=== PATIENT | female | born 1985 | race Caucasian/White ===

== ENCOUNTER 2023-09-23 13:27 | Outpatient (AMB) | payer OTHER, SELFPAY ==
[2023-09-23 13:34] VITALS: BP 114/62; PULSE 75; O2SAT 99; BMI 21.1
--- NOTE | 2023-09-23 13:34 | A.OFFVIS_ITS ---
Intake Vital Signs 09/23/23 13:34 Height 5 ft 7 in Weight 135 lb BMI 21.1 BP 114/62 Blood Pressure Location Rt brachial Position Sitting Pulse 75 Pulse Oximetry (%) 99 Oxygen Delivery Method Room Air Intake Visit Reasons: Shortness of breath Livestock Brands Inspector Required: No Structured Cabling Technician: Structured Cabling Technician offered & declined Accompanied by: Self / Same As Patient Allergies No Known Allergies Allergy (Verified 09/23/23 13:36) HPI Shortness of breath HPI Details Dacia is a pleasant 38 year old female, never smoker, with underlying h/o symtomatic PVCs and seizure disorder. She was referred for pulmonary evaluation for ongoing left sided chest discomfort which radiates towards her neck. She reports pain is variable, squeezing in nature, lasting seconds and occurs once per week, for the past 4-5 years. She also notes dizziness when this discomfort occurs. She denies any wheezing or dyspnea. She does report intermittent white sputum production, however denies cough. She has reportedly been evaluated by two parts fabricator in [place], with unremarkable stress test and echocardiogram. She underwent recent cardiac evaluation with holter and noted these symptoms occurred, however mild in nature. She has a follow up on 10/12 to review results. Will obtain records from [facility]. She also reports a sensation of food stuck in her throat on the left and is undergoing an endoscopy in the near future. She denies any symptoms of heartburn or acid reflux. She reports sister, smoker with COPD otherwise no pertinent family history. She does note two sisters with breast cancer and has mammograms q 6 months. [facility] Social History (Updated 09/23/23 @ 13:36 by Regine Denise LPN) Patient Tobacco Use Status: Never used Tobacco Review of Systems Const Denies chills, Denies excessive sweating, Denies fever(s), Denies headache(s) and Denies night sweats Eyes Denies dry eyes, Denies irritation and Denies itchy eyes ENT Reports Normal hearing present, Denies headache(s), Denies nasal congestion, Denies nasal discharge, Denies post nasal drip and Denies sore throat Card Denies claudication, Denies leg edema, Denies dyspnea, Denies dyspnea on exertion, Denies orthopnea and Denies paroxysmal nocturnal dyspnea Resp Denies chest congestion, Denies cough, Denies excessive phlegm production, Denies pain on inspiration, Denies pain with cough, Denies dyspnea, Denies dyspnea on exertion, Denies stridor and Denies wheezing Musc Denies myalgias Neuro Reports Normal hearing present and Denies headache(s) Endo Denies excessive sweating Edison/Lymph Denies lymphadenopathy Aller/Immun Denies itchy eyes, Denies seasonal rhinorrhea and Denies wheezing Physical Exam Vital Signs: Last Vital Signs Pulse 75 09/23/23 13:34 BP 114/62 09/23/23 13:34 Pulse Ox 99 09/23/23 13:34 Oxygen Delivery Method Room Air 09/23/23 13:34 BMI result Body Mass Index 21.1 Const General: cooperative, healthy appearing, comfortable, no acute distress, well developed and alert Orientation/consciousness: patient oriented x3 Limitations: no limitations HEENT Head: Yes normal to inspection, Yes normocephalic and Yes atraumatic Ears: hearing grossly normal bilaterally and external ears normal Eyes General: appearance normal, both eyes and all related structures Eyelids: Yes eyelids normal Sclerae: sclerae normal EOM: EOMs intact bilaterally Neck Neck: Yes normal visual inspection and Yes no lymphadenopathy Lymphatic: no lymphadenopathy noted Chest Chest palpation & inspection: normal inspection of the chest Resp Effort & Inspection: normal respiratory effort, able to speak in complete sentences, no audible wheezes, no cough, no stridor, not tachypneic, no tripod positioning and no use of accessory muscles Auscultation: clear to auscultation bilaterally Cardio Jugular venous distension: no JVD Rate: regular rate Rhythm: regular rhythm Skin Other: warm, dry General skin exam: no rashes or lesions noted Neuro General: patient oriented x3 Cranial nerves: Yes Normal hearing present Cognition (Neuro): normal cognition Gait exam (Neuro): Normal gait present Extrem General: Yes normal to inspection, Yes capillary refill normal, Yes no clubbing, cyanosis or edema and Yes no pedal edema Psych Appearance: grossly normal and well kempt Speech and movement: Normal speech and movement present and Clear speech present Affect: normal affect Attitude: cooperative Thought process: Normal thought process present Thought content: Normal thought content present Insight: Good insight present (Psych) Judgement: Good judgement present (Psych) Assessment & Plan Assessment & Plan (1) Chest pain: Code(s): R07.9 - Chest pain, unspecified Plan Canan's symptoms are unlikely related to pulmonary etiologies, however will send for CXR with possible further imaging to evaluate. She is requesting a MRI, if further imaging is required, as she requires biannual mammograms due to high familial risk of breast cancer and would like to avoid additional radiation if possible. All questions were answered and patient is in agreement of plan. Will follow up in 4 weeks to review CXR and cardiac input. Will have her sign release to obtain cardiology records. She is aware to seek emergent care if symptoms worsen. Orders: Orders XR chest 2V 09/23/23 R07.9 - Chest pain, unspecified Coding Level of Care Code New Pt Level 3 (51856) Diagnoses Chest pain R07.9
== END 2023-09-23 14:08 | disposition home or self-care (01) ==
PROVIDERS: PCP Family Medicine; Referring Provider Family Medicine; Visit Provider Nurse Practitioner Family
DX: R07.9 Chest pain, unspecified (principal)
CPT/HCPCS: 99203

== ENCOUNTER → 2023-09-23 13:27 | Outpatient (BNVA) | payer OTHER, SELFPAY | PROVIDERS: Referring Provider Family Medicine; Visit Provider Nurse Practitioner Family ==

== ENCOUNTER 2023-09-29 14:59 | Outpatient (REF) | payer OTHER, SELFPAY ==
--- NOTE | ~2023-09-29 | XR_ITS ---
EXAMINATION: XR CHEST CLINICAL INFORMATION: Chest pain COMPARISON: None available. TECHNIQUE: 2 views of the chest were obtained. FINDINGS: vascularity. LUNGS: Lungs are clear. No pneumothorax is seen. BONES: Bony skeleton is intact. XR/XR chest 2V IMPRESSION: No radiographic evidence of acute cardiopulmonary disease.
== END 2023-09-29 15:00 | disposition home or self-care (01) ==
LOC: HO.XRAY 14:59
PROVIDERS: Visit Provider Nurse Practitioner Family
DX: R07.9 Chest pain, unspecified (principal)
CPT/HCPCS: 71046

== ENCOUNTER 2023-10-21 14:06 | Outpatient (AMB) | payer OTHER, SELFPAY ==
--- NOTE | 2023-10-21 13:10 | A.OFFVIS_ITS ---
Intake Vital Signs 10/21/23 14:08 Height 5 ft 7 in Weight 137 lb BMI 21.5 BP 116/60 Pulse 70 Pulse Source Pulse Oximeter Pulse Oximetry (%) 99 Oxygen Delivery Method Room Air Intake Visit Reasons: sob: 4 week f/u Accounts Receivable Associate Required: No Construction Technology Instructor: Construction Technology Instructor offered & declined Accompanied by: Self / Same As Patient Allergies No Known Allergies Allergy (Verified 10/21/23 14:12) HPI sob: 4 week f/u HPI Details Dacia is a pleasant 38 year old female, never smoker, with underlying h/o symptomatic PVCs and seizure disorder. She was referred for pulmonary evaluation for ongoing left sided chest discomfort which radiates towards her neck. She reports pain is variable, squeezing in nature, lasting seconds and occurs approximately once per week, for the past 4-5 years. She also notes dizziness and increase in heart rate at rest (120-130) when this discomfort occurs. She denies cough, or dyspnea. Today reports intermittent wheezing. She exercises frequently, without occurrences of discomfort or dyspnea. However when the pain occurs she notes her heart rate is elevated 120-130s at rest. She recently had a 30 day holter which reportedly was unremarkable, despite having these episodes while being monitored. Today she presents review CXR and cardiology input. [facility] Social History (Updated 10/21/23 @ 14:13 by Regine Denise LPN) Patient Tobacco Use Status: Never used Tobacco Smoked in Last 30 Days: No Review of Systems Const Denies chills, Denies excessive sweating, Denies fever(s), Denies headache(s) and Denies night sweats Eyes Denies dry eyes, Denies irritation and Denies itchy eyes ENT Reports Normal hearing present, Denies headache(s), Denies nasal congestion, Denies nasal discharge, Denies post nasal drip and Denies sore throat Card Denies claudication, Denies leg edema, Denies dyspnea, Denies dyspnea on exertion, Denies orthopnea and Denies paroxysmal nocturnal dyspnea Resp Denies chest congestion, Denies cough, Denies excessive phlegm production, Denies pain on inspiration, Denies pain with cough, Denies dyspnea, Denies dyspnea on exertion, Denies stridor and Denies wheezing Musc Denies myalgias Neuro Reports Normal hearing present and Denies headache(s) Endo Denies excessive sweating Edison/Lymph Denies lymphadenopathy Aller/Immun Denies itchy eyes, Denies seasonal rhinorrhea and Denies wheezing Physical Exam Vital Signs: Last Vital Signs Pulse 70 10/21/23 14:08 BP 116/60 10/21/23 14:08 Pulse Ox 99 10/21/23 14:08 Oxygen Delivery Method Room Air 10/21/23 14:08 BMI result Body Mass Index 21.5 Const General: cooperative, healthy appearing, comfortable, no acute distress, well developed and alert Orientation/consciousness: patient oriented x3 Limitations: no limitations HEENT Head: Yes normal to inspection, Yes normocephalic and Yes atraumatic Ears: hearing grossly normal bilaterally and external ears normal Eyes General: appearance normal, both eyes and all related structures Eyelids: Yes eyelids normal Sclerae: sclerae normal EOM: EOMs intact bilaterally Neck Neck: Yes normal visual inspection and Yes no lymphadenopathy Lymphatic: no lymphadenopathy noted Chest Chest palpation & inspection: normal inspection of the chest Resp Effort & Inspection: normal respiratory effort, able to speak in complete sentences, no audible wheezes, no cough, no stridor, not tachypneic, no tripod positioning and no use of accessory muscles Auscultation: clear to auscultation bilaterally Cardio Jugular venous distension: no JVD Rate: regular rate Rhythm: regular rhythm Skin Other: warm, dry General skin exam: no rashes or lesions noted Neuro General: patient oriented x3 Cranial nerves: Yes Normal hearing present Cognition (Neuro): normal cognition Gait exam (Neuro): Normal gait present Extrem General: Yes normal to inspection, Yes capillary refill normal, Yes no clubbing, cyanosis or edema and Yes no pedal edema Psych Appearance: grossly normal and well kempt Speech and movement: Normal speech and movement present and Clear speech present Affect: normal affect Attitude: cooperative Thought process: Normal thought process present Thought content: Normal thought content present Insight: Good insight present (Psych) Judgement: Good judgement present (Psych) Results Reviewed Results Reviewed: [address] [address] XRay Report Signed Patient: Dacia Amador MR#: [id number] : 1985 Acct:[id number] Age/Sex: 38 / F ADM Date: 09/29/23 Loc: [facility] Attending Dr: Suly Spears [employer]ESSER Ordering Physician: Suly Spears NP Date of Service: 09/29/23 Procedure(s): XR chest 2V Accession Number(s): [id number] cc: Suly Spears NP~ EXAMINATION: XR CHEST CLINICAL INFORMATION: Chest pain COMPARISON: None available. TECHNIQUE: 2 views of the chest were obtained. FINDINGS: vascularity. LUNGS: Lungs are clear. No pneumothorax is seen. BONES: Bony skeleton is intact. XR/XR chest 2V IMPRESSION: No radiographic evidence of acute cardiopulmonary disease. Dictated By: Jj Wilder Signed By: <Electronically signed by Jj Wilder in [place]> 10/03/23 1446 Assessment & Plan Assessment & Plan (1) Chest pain: Code(s): R07.9 - Chest pain, unspecified (2) Reactive airway disease with wheezing: Code(s): J45.909 - Unspecified asthma, uncomplicated Plan Will send for PFT to assess for any reactive airway disease given her intermittent wheezing. Reviewed CXR which was unremarkable. Discussed further imaging to rule out any pulmonary etiology contributing to chest discomfort but patient would like to hold off at this time. It is more likely it is cardiac in nature given increased heart rate and dizziness with chest discomfort, however holter reportedly normal. Will reach out to obtain records from cardiology. Patient is also requesting a second opinion and plans to have another cardiac evaluation through [facility]. If symptoms persist, may consider CPET. Patient also underwent GI evaluation which reportedly revealed a small hiatal hernia, otherwise unremarkable. Will follow up after PFT to review results. All questions were answered and patient is in agreement of plan. Orders: Orders PFT pulmonary function test Today J45.909 - Unspecified asthma, uncomplicated Coding Level of Care Code Est Pt Level 4 (31731) Diagnoses Chest pain R07.9 Reactive airway disease with wheezing J45.909
[2023-10-21 14:08] VITALS: BP 116/60; PULSE 70; O2SAT 99; BMI 21.5
== END 2023-10-21 14:37 | disposition home or self-care (01) ==
PROVIDERS: Visit Provider Nurse Practitioner Family
DX: R07.9 Chest pain, unspecified (principal); J45.909 Unspecified asthma, uncomplicated
CPT/HCPCS: 99214

== ENCOUNTER → 2023-10-21 14:06 | Outpatient (BNVA) | payer OTHER, SELFPAY | PROVIDERS: Visit Provider Nurse Practitioner Family ==

== ENCOUNTER 2023-12-29 13:21 | Outpatient (REF) | payer OTHER, SELFPAY | END 2023-12-29 13:22 | disposition home or self-care (01) | LOC: HO.CT 13:21 | PROVIDERS: Visit Provider Nurse Practitioner Family | DX: Z13.89 Encounter for screening for other disorder (principal) ==

== ENCOUNTER 2023-12-29 14:16 | Emergency (ER) | payer OTHER, SELFPAY ==
--- NOTE | 2023-12-29 14:19 | ED.GENADULT ---
HPI - General Adult General Chief complaint: General Medical Stated complaint: not feeling well after cat scan Related Data Allergies Allergy/AdvReac Type Severity Reaction Status Date / Time bee pollen [bee stings] Allergy Swelling Verified 12/29/23 14:21 COUNT INCLUDES THE [facility] Social History Social History (Updated 10/21/23 @ 14:13 by Regine Denise LPN) Patient Tobacco Use Status: Never used Tobacco Physical Exam ED Vital Signs: Vital Signs - 24 hr 12/29/23 14:22 Temperature 97.8 F Pulse Rate 71 Respiratory Rate 16 Blood Pressure 119/73 Pulse Oximetry 98 Oxygen Delivery Method Room Air BMI result Body Mass Index 22.7 Course Course Course Narrative: This is a rapid medical exam: Additional HPI, ROS, PE not included below will be deferred to primary provider. Patient is a 38-year-old female presenting to the ED from outpatient CT after having a reaction to the CT contrast. Patient states that when the contrast was injected she developed tingling to her face and pressure around her eyes. Also felt a warm sensation in her chest. Symptoms have since resolved. Denies any rash or hives. Denies any chest pain or dyspnea. States she gets regular CT scans and MRIs and has never had a reaction before. Denies shortness of breath, swelling to lips or tongue. No uvula edema. States occurred 45 minutes ago. Plan: EKG Discharge Plan Discharge Clinical Impression: Adverse reaction to contrast media Patient Disposition: Left W/O Completing Treatment
[2023-12-29 14:22] VITALS: BP 119/73; PULSE 71; RESP 16; TEMP 36.6; O2SAT 98; BMI 22.7
== END 2023-12-29 16:34 | disposition left against medical advice (07) ==
PROVIDERS: Emergency Provider Emergency Medicine
DX: R20.2 Paresthesia of skin (principal); T50.8X5A Adverse effect of diagnostic agents, initial encounter; X58.XXXA Exposure to other specified factors, initial encounter
CPT/HCPCS: 71275; 99281; 99283

== ENCOUNTER 2024-01-06 10:55 | Outpatient (REF) | payer OTHER, SELFPAY ==
[2023-12-29] MEDS: iohexoL 350 MG/ML 75 ML INFUS..BTL 65 ML IV (14:04)
--- NOTE | ~2024-01-06 | CT_ITS ---
EXAMINATION: CT ANGIOGRAM OF THE CHEST WITH AND WITHOUT CONTRAST (CT PULMONARY ANGIOGRAM FOR PE) CLINICAL INFORMATION: Reason for Exam R07.9 - Chest pain, unspecified COMPARISON: None available. TECHNIQUE: Prior to contrast administration, noncontrast localization images were obtained. Subsequently, multidetector volumetric imaging was performed from the thoracic inlet to below the diaphragms following the administration of 65 mL Omnipaque 350 intravenous contrast. No contrast reaction reported Sagittal, coronal, and MIP oblique sagittal reformatted images were obtained on the CT workstation, uploaded to PACS, and reviewed. This CT examination was performed using dose optimization techniques as appropriate, variously including the following: *Automated exposure control *Adjustment of mA and/or kV according to patient size (this includes techniques or standardized protocols for targeted exams where dose is matched to indication/reason for exam; i.e. extremities or head) *Use of iterative reconstruction technique Total exam dose-length product 88 mGy-cm FINDINGS: QUALITY OF STUDY/CONTRAST BOLUS: Satisfactory. PULMONARY ARTERIES: No pulmonary emboli. THORACIC AORTA: No aneurysm. LUN.8 x 1.2 cm groundglass nodule in the right lower lobe on image 28 of series 6. PLEURA: Small bilateral pleural effusions. MEDIASTINUM: Normal heart size. Trace pericardial effusion. No hilar or mediastinal lymphadenopathy. No evidence of septal bowing or right heart strain. CORONARY ARTERY CALCIFICATION: None visualized on this study. CHEST WALL/AXILLA: No axillary or internal mammary lymphadenopathy. OSSEOUS STRUCTURES: No destructive bone lesions. UPPER ABDOMEN: No adrenal mass. No reflux of contrast into the hepatic veins to suggest elevated right heart pressures. CT/CT angio chest PE protocol IMPRESSION: No evidence of pulmonary embolus. 1.8 x 1.2 cm groundglass nodule in the right lower lobe. Follow-up chest CT in 6 months is advised. Trace bilateral pleural effusions. VTE: negative
[2024-01-06 11:42] VITALS: PULSE 60; RESP 14; O2SAT 100
--- NOTE | 2024-01-06 13:36 | PFT_ITS ---
Indication: Dyspnea Spirometry [FEV1 to FVC 79%; FEV1 1.13 L; FVC 3.94 L. No significant response to bronchodilators. Maximum voluntary ventilation 118% predicted] Lung Volumes [Total lung capacity 96% predicted] Diffusion Capacity [DLCO 115% predicted] Comparisons [None] Interpretation [No obstructive nor restrictive ventilatory defects identified. No significant response to bronchodilators noted. No maximum voluntary ventilation. Normal lung volumes and diffusing capacity. Flow volume loop consistent with normal lung mechanics. MTDD
== END 2024-01-06 10:56 | disposition home or self-care (01) ==
LOC: HO.RESP 10:55
PROVIDERS: PCP Family Medicine; Visit Provider Nurse Practitioner Family
DX: R07.9 Chest pain, unspecified (principal); J45.909 Unspecified asthma, uncomplicated
CPT/HCPCS: 94010; 94640; 94727; 94729; Q9967

== ENCOUNTER → 2024-01-06 13:36 | Outpatient (BNV) | payer OTHER, SELFPAY | PROVIDERS: PCP Family Medicine; Visit Provider Hospitalist | DX: J45.909 Unspecified asthma, uncomplicated (principal) | CPT/HCPCS: 94060; 94727; 94729 ==

== ENCOUNTER 2024-01-11 13:04 | Outpatient (AMB) | payer OTHER, SELFPAY ==
--- NOTE | 2024-01-11 13:05 | A.OFFVIS_ITS ---
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 She was referred for pulmonary evaluation for ongoing left sided chest discomfort which radiates towards her neck. She reports pain is variable, squeezing in nature, lasting seconds and occurs approximately once per week, for the past 4-5 years. She also notes dizziness and increase in heart rate at rest (120-130) when this discomfort occurs. She denies cough, or dyspnea. Cardiology work up unremarkable. At the last visit, she was sent for ddimer for chest pain which was mildly elevated therefore sent for CTA, which was negative. However CTA did reveal a well circ umscribed ground glass appearing opacity, which we discussed. Her case was further discussed at our multidisciplinary conference which we had previously reviewed recommendations including thoracic surgery referral, PET or CT chest in three months. Today she presents to further discuss and review PFT results. Today she denies any respiratory symptoms. [facility]LY [facility], [facility] Social History Patient Tobacco Use Status: Never used Tobacco Review of Systems Const Denies chills, Denies excessive sweating, Denies fever(s), Denies headache(s) and Denies night sweats Eyes Denies dry eyes, Denies irritation and Denies itchy eyes ENT Reports Normal hearing present, Denies headache(s), Denies nasal congestion, Denies nasal discharge, Denies post nasal drip and Denies sore throat Card Denies claudication, Denies leg edema, Denies dyspnea, Denies dyspnea on exertion, Denies orthopnea and Denies paroxysmal nocturnal dyspnea Resp Denies chest congestion, Denies cough, Denies excessive phlegm production, Denies pain on inspiration, Denies pain with cough, Denies dyspnea, Denies dyspnea on exertion, Denies stridor and Denies wheezing Musc Denies myalgias Neuro Reports Normal hearing present and Denies headache(s) Endo Denies excessive sweating Edison/Lymph Denies lymphadenopathy Aller/Immun Denies itchy eyes, Denies seasonal rhinorrhea and Denies wheezing Physical Exam Vital Signs: Last Vital Signs Pulse 62 01/11/24 13:08 Pulse Ox 99 01/11/24 13:08 Oxygen Delivery Method Room Air 01/11/24 13:08 BMI result Body Mass Index 21.6 Const General: cooperative, healthy appearing, comfortable, no acute distress, well developed and alert Orientation/consciousness: patient oriented x3 Limitations: no limitations HEENT Head: Yes normal to inspection, Yes normocephalic and Yes atraumatic Ears: hearing grossly normal bilaterally and external ears normal Eyes General: appearance normal, both eyes and all related structures Eyelids: Yes eyelids normal Sclerae: sclerae normal EOM: EOMs intact bilaterally Neck Neck: Yes normal visual inspection and Yes no lymphadenopathy Lymphatic: no lymphadenopathy noted Chest Chest palpation & inspection: normal inspection of the chest Resp Effort & Inspection: normal respiratory effort, able to speak in complete sentences, no audible wheezes, no cough, no stridor, not tachypneic, no tripod positioning and no use of accessory muscles Auscultation: clear to auscultation bilaterally Cardio Jugular venous distension: no JVD Rate: regular rate Rhythm: regular rhythm Skin Other: warm, dry General skin exam: no rashes or lesions noted Neuro General: patient oriented x3 Cranial nerves: Yes Normal hearing present Cognition (Neuro): normal cognition Gait exam (Neuro): Normal gait present Extrem General: Yes normal to inspection, Yes capillary refill normal, Yes no clubbing, cyanosis or edema and Yes no pedal edema Psych Appearance: grossly normal and well kempt Speech and movement: Normal speech and movement present and Clear speech present Affect: normal affect Attitude: cooperative Thought process: Normal thought process present Thought content: Normal thought content present Insight: Good insight present (Psych) Judgement: Good judgement present (Psych) Results Reviewed Results Reviewed: [address] [address] [address] Scan Report Signed Patient: Dacia Amador MR#: [id number] : 1985 Acct:[id number] Age/Sex: 38 / F ADM Date: 11/15/23 Loc: HO.RESP Attending Dr: Suly Spears NP Ordering Physician: Suly Spears NP Date of Service: 12/29/23 Procedure(s): CT angio chest PE protocol Accession Number(s): [id number] cc: Suly Spears NP~ EXAMINATION: CT ANGIOGRAM OF THE CHEST WITH AND WITHOUT CONTRAST (CT PULMONARY ANGIOGRAM FOR PE) CLINICAL INFORMATION: Reason for Exam R07.9 - Chest pain, unspecified COMPARISON: None available. TECHNIQUE: Prior to contrast administration, noncontrast localization images were obtained. Subsequently, multidetector volumetric imaging was performed from the thoracic inlet to below the diaphragms following the administration of 65 mL Omnipaque 350 intravenous contrast. No contrast reaction reported Sagittal, coronal, and MIP oblique sagittal reformatted images were obtained on the CT workstation, uploaded to PACS, and reviewed. This CT examination was performed using dose optimization techniques as appropriate, variously including the following: *Automated exposure control *Adjustment of mA and/or kV according to patient size (this includes techniques or standardized protocols for targeted exams where dose is matched to indication/reason for exam; i.e. extremities or head) *Use of iterative reconstruction technique Total exam dose-length product 88 mGy-cm FINDINGS: QUALITY OF STUDY/CONTRAST BOLUS: Satisfactory. PULMONARY ARTERIES: No pulmonary emboli. THORACIC AORTA: No aneurysm. LUN.8 x 1.2 cm groundglass nodule in the right lower lobe on image 28 of series 6. PLEURA: Small bilateral pleural effusions. MEDIASTINUM: Normal heart size. Trace pericardial effusion. No hilar or mediastinal lymphadenopathy. No evidence of septal bowing or right heart strain. CORONARY ARTERY CALCIFICATION: None visualized on this study. CHEST WALL/AXILLA: No axillary or internal mammary lymphadenopathy. OSSEOUS STRUCTURES: No destructive bone lesions. UPPER ABDOMEN: No adrenal mass. No reflux of contrast into the hepatic veins to suggest elevated right heart pressures. CT/CT angio chest PE protocol IMPRESSION: No evidence of pulmonary embolus. 1.8 x 1.2 cm groundglass nodule in the right lower lobe. Follow-up chest CT in 6 months is advised. Trace bilateral pleural effusions. VTE: negative Dictated By: Hallie Clemente MD Signed By: <Electronically signed by Hallie Clemente MD in OV> 12/29/23 1518 DD/ 1404 TD/TT: Family Nurse: Assessment & Plan Assessment & Plan (1) Ground glass opacity present on imaging of lung: Code(s): R91.8 - Other nonspecific abnormal finding of lung field (2) Chest pain: Code(s): R07.9 - Chest pain, unspecified Plan Patient is quite concerned with findings so had long discussion reviewing CTA in detail and recommendations. At this time, she would like to move forward with a thoracic surgery referral and is requesting a referral to Dr. Delgadillo. Will enter this. If patient does not proceed with surgery, then will send for chest CT in 3 months. There was also findings of small bilateral pleural effusions, will send for chest x-ray in three weeks to evaluate. Of note, when patient underwent CT she was experiencing upper respiratory symptoms. Advised patient to discuss noted trace pericardial effusion at upcoming cardiology appointment. All questions were answered patient in agreement with plan. Will follow-up after evaluation with thoracic surgery. Orders: Orders CT chest wo IV con 3 Months R91.8 - Other nonspecific abnormal finding of lung field XR chest 2V 3 Weeks J90 - Pleural effusion, not elsewhere classified Referrals Thoracic Surgery Referral R91.8 - Other nonspecific abnormal finding of lung field Coding Level of Care Code Est Pt Level 4 (60583) Diagnoses Ground glass opacity present on imaging of lung R91.8 Chest pain R07.9
[2024-01-11 13:08] VITALS: PULSE 62; O2SAT 99; BMI 21.6
== END 2024-01-11 13:56 | disposition home or self-care (01) ==
PROVIDERS: PCP Family Medicine; Visit Provider Nurse Practitioner Family
DX: R91.8 Other nonspecific abnormal finding of lung field (principal); R07.9 Chest pain, unspecified
CPT/HCPCS: 99214

== ENCOUNTER → 2024-01-11 13:04 | Outpatient (BNVA) | payer OTHER, SELFPAY | PROVIDERS: PCP Family Medicine; Visit Provider Nurse Practitioner Family ==

== ENCOUNTER 2024-01-11 14:36 | Outpatient (AMB) | payer OTHER, SELFPAY ==
[2024-01-11 14:42] VITALS: BP 116/68; PULSE 70; BMI 21.6
--- NOTE | 2024-01-11 14:42 | A.OFFVIS_ITS ---
Intake Vital Signs 01/11/24 14:42 Height 5 ft 7 in Weight 138 lb BMI 21.6 BP 116/68 Blood Pressure Location Rt brachial Position Sitting Pulse 70 Intake Visit Reasons: Right lower lobe lung nodule Intake Note: Patient referred for Rt lower lobe nodule. Patient c/o: SOB. CT chest: 12-29-23. PFT'S: 01-06-24. Actuarial Assistant Required: No Accompanied by: Self / Same As Patient Allergies bee pollen [bee stings] Allergy (Verified 01/11/24 14:44) Swelling HPI HPI Comments History of Present Illness Details PATIENT PRESENTS HERE STATUS POST CT SCAN OF THE CHEST FOR OTHER ISSUES AND DEMONSTRATION OF AN INCIDENTALLY FOUND RIGHT LOWER LOBE LUNG MASS/PROCESS. PATIENT HERSELF HAS NO RESPIRATORY ISSUES. SHE DENIES ANY COUGH, CHEST PAIN, HEMOPTYSIS, WHEEZING. HER WEIGHT, ENERGY, APPETITE ARE ALL STABLE. Patient has never smoked cigarettes. Chart was reviewed and patient evaluated [facility] Social History Patient Tobacco Use Status: Never used Tobacco Physical Exam Vital Signs: Last Vital Signs Pulse 70 01/11/24 14:42 BP 116/68 01/11/24 14:42 BMI result Body Mass Index 21.6 HEENT Other: No cervical, periclavicular, or axillary adenopathy bilaterally. Chest Other: Chest breath sounds bilaterally GI Other: Abdomen is soft, benign Assessment & Plan Assessment & Plan (1) Right lower lobe lung mass: Code(s): R91.8 - Other nonspecific abnormal finding of lung field Plan The appearance of this process is moderately concerning. Patient has no cigarette smoking history and no appreciable risk factors for a lung tumor. The lesion itself is diffuse with with ground-glass appearance. Could this be an early stage neoplastic process is always a possibility. I discussed with the patient therapeutic options which include observation/surveillance with repeat CT scan in 4-6 months or consideration for excision of this process with vats/minimally invasive surgery.. The risks, benefits, alternatives of each were reviewed. Patient would like to think about her options. All questions answered. She will contact me when she has made a decision as to what she would like to do regarding this process. Coding Level of Care Code New Pt Level 4 (81201) Diagnoses Right lower lobe lung mass R91.8
== END 2024-01-11 15:20 | disposition home or self-care (01) ==
PROVIDERS: PCP Family Medicine; Visit Provider Surgery
DX: R91.8 Other nonspecific abnormal finding of lung field (principal)
CPT/HCPCS: 99204

== ENCOUNTER 2024-01-24 09:06 | Outpatient (REF) | payer OTHER, SELFPAY | END 2024-01-24 09:07 | disposition home or self-care (01) | LOC: HO.UMASIMG 09:06 | PROVIDERS: Visit Provider Family Medicine | DX: Z13.89 Encounter for screening for other disorder (principal) ==

== ENCOUNTER 2024-02-07 06:27 | Outpatient (REF) | payer OTHER, SELFPAY ==
--- NOTE | ~2024-02-07 | US_ITS ---
EXAMINATION: US SOFT TISSUE HEAD/NECK CLINICAL INFORMATION: Intermittent left-sided neck pain. COMPARISON: None available. TECHNIQUE: Linear transducer akbar-scale and color Doppler examination of the left mid/lateral neck, left anterior superior to inferior neck, and right mid lateral neck. FINDINGS: No sonographic correlate to the reported symptom of neck pain. Benign-appearing 1.3 x 0.2 x 0.3 cm cervical node is noted not pathologically enlarged. No pathologically enlarged lymph nodes. No fluid collection or soft tissue mass. US/US soft tiss head and/or neck IMPRESSION: No sonographic correlate to the reported symptom of neck pain.
== END 2024-02-07 06:28 | disposition home or self-care (01) ==
LOC: HO.UMASIMG 06:27
PROVIDERS: Visit Provider Family Medicine
DX: M54.2 Cervicalgia (principal)
CPT/HCPCS: 76536

== ENCOUNTER 2024-03-23 23:06 | Emergency (ER) | payer OTHER, SELFPAY ==
--- NOTE | ~2024-03-23 | CT_ITS ---
EXAMINATION: CT head/brain wo IV con CLINICAL INFORMATION: Reason for Exam bond COMPARISON: MRI brain is 07/09/2019 TECHNIQUE: Contiguous axial imaging was performed from the skull base to vertex without intravenous contrast. Sagittal and coronal reformatted images were obtained. This CT examination was performed using dose optimization techniques as appropriate, variously including the following: * Automated exposure control * Adjustment of mA and/or kV according to patient size (this includes techniques or standardized protocols for targeted exams where dose is matched to indication/reason for exam; i.e. extremities or head) Use of iterative reconstruction technique DLP: 602.78 mGy-cm FINDINGS: Redemonstrated 1.0 cm ovoid hyperdensity within the anterosuperior aspect of the third ventricle near the foramen of Monro, compatible with a colloid cyst. No evidence of obstructive hydrocephalus at this time. There is no abnormal attenuation within the brain parenchyma. No territorial loss of akbar-white differentiation. No acute intracranial hemorrhage or extra-axial fluid collection. No mass lesion, significant mass effect, or herniation pattern. The orbits are grossly normal. Paranasal sinuses and mastoid air cells are well aerated. Osseous thinning of the right jugular bulb without tacho dehiscence into the right hypotympanum. Mild arachnoid pitting along the floors of the middle cranial fossae. CT/CT head/brain wo IV con IMPRESSION: Stable 1.0 cm colloid cyst without evidence of obstructive hydrocephalus. No acute intracranial abnormality.
[2024-03-23 23:12] VITALS: BP 113/75; PULSE 100; RESP 18; TEMP 36.8; O2SAT 100; BMI 21.5
[2024-03-23 23:31] LABS: Glucose, Whole Blood 73 mg/dL (60-115)
--- NOTE | 2024-03-23 23:32 | ECG_ITS ---
Test Reason : ALTERED MENTAL Blood Pressure : / mmHG Vent. Rate : 072 BPM Atrial Rate : 072 BPM P-R Int : 144 ms QRS Dur : 090 ms QT Int : 390 ms P-R-T Axes : 055 077 043 degrees QTc Int : 427 ms Sinus rhythm with occasional Premature ventricular complexes Cannot rule out Anterior infarct , age undetermined Abnormal ECG No previous ECGs available Referred By: Katelynn Hyde Electronically Signed By:ROSA OSBORN
--- NOTE | 2024-03-23 23:35 | ED_ITS ---
HPI - Altered Mental Status General Chief Complaint: Altered Mental Status Stated Complaint: dizziness/chills Time Seen by Provider: 03/23/24 23:29 History of Present Illness HPI narrative: Patient is a 38-year-old female presents today with having sudden onset of dizziness. Fullness in the head. Very abrupt in onset. Patient has a history of a brain cyst. Currently being followed at [facility]. History of seizures in the past. There was no seizure activity that was witnessed. Then had dizziness. She describes the dizziness is not quite right. A watery feeling inside her head. It is associated with nausea no vomiting. Patient denies any substance abuse. She was at a friend's house at the time. Never had something similar. No new medication. No recreational drugs. Symptoms started at approximately 22:30. Related Data Home Medications ?Medication ?Instructions ?Recorded ?Confirmed fluconazole 150 mg tablet 150 mg PO ONCE 01/11/24 Previous Rx's ?Medication ?Instructions ?Recorded cephalexin 500 mg capsule 500 mg PO Q8H 7 days #21 caps 03/24/24 Allergies Allergy/AdvReac Type Severity Reaction Status Date / Time bee pollen [bee stings] Allergy Swelling Verified 03/23/24 23:18 Review of Systems 2 Review of Systems: Positive headache and dizziness No fever no chills no focal weakness Yes all other systems are reviewed and are negative [facility] Past Medical History Attestation statement: The following information was validated with the patient. Social History Social History Patient Tobacco Use Status: Never used Tobacco Advance Directives: No Advance Directives Information Provided: Yes Do you have a plan to hurt others: No Plan Physical Exam ED Vital Signs: Vital Signs - 24 hr 03/23/24 23:12 03/24/24 02:04 Temperature 98.3 F Pulse Rate 100 73 Respiratory Rate 18 16 Blood Pressure 113/75 98/56 L Pulse Oximetry 100 99 Oxygen Delivery Method Room Air Room Air BMI result Body Mass Index 21.5 Appearance: Alert. Oriented X3. No acute distress. Eyes: Pupils equal, round and reactive to light. ENT: Pharynx normal. Neck: Normal inspection. Neck supple. No lymph nodes noted. No crepitus CVS: Normal heart rate and rhythm. Pulses normal. Normal S1 and S2 Respiratory: No respiratory distress. Breath sounds normal. No Wheezing. No rales Abdomen: Soft and nontender. No rigidity. No distention. good BS x4 Skin: Skin warm and dry. Normal skin color. Normal skin turgor. Extremities: No lower extremity edema. Neurovascular intact to all extremities. No Lacerations. No Rash Neuro: Oriented X 3. No motor deficit. No sensory deficit. Moving all extermities. No slurred speech Medications Administered Discontinued Medications Generic Name Dose Route Start Last Admin Trade Name Bg PRN Reason Stop Dose Admin Sodium Chloride 1,000 mls @ 999 mls/hr 03/23/24 23:45 03/24/24 00:41 Ns IV 03/24/24 00:45 Infused .Q1H1M JODI Infusion Ondansetron HCl 4 mg 03/23/24 23:33 03/23/24 23:41 Ondansetron Hcl 4 Mg/2 Ml Vial IVPUSH 03/23/24 23:34 Not Given ONCE ONE Medical Decision Making Medical Decision Making MDM Narrative: CT scan of the head was done. It showed no acute evidence of bleeding. In the setting of sudden onset of symptom at 10:30 unlikely to be an intracranial bleed. Patient is CT scan showed no acute changes. It did show a 1.0 cm coli cyst. There has no evidence of obstruction. Likely not the cause of patient's symptoms. My interpretation of patient's EKG showed a sinus rhythm heart rate is 70 NJ QRS QTC normal there is PVCs noted. Patient's hemoglobin is 12.7 no evidence for anemia. test was negative no evidence for related issue patient's troponin is negative no chest pain unlikely ACS patient's urine did show a significant urinary tract infection with 3+ bacteria. Will start patient on a course of Keflex. Close follow-up on an outpatient basis after IV fluids patient's symptoms completely resolved she is well- appearing she has in no distress she will follow-up closely with her doctor at [facility]. A copy of the CT sick and was given to her. Differential Diagnosis Differential Diagnoses: The differential diagnosis associated with the presentation includes Intracranial bleed, arrhythmia, related issue, hypoglycemia, UTI Admission/Observation Consideration of admission/observation: Escalation of care including admission/observation considered Lab Data MDM Lab Attestation statement: I reviewed the patient's lab results. 03/23/24 23:37 03/23/24 23:37 Labs: Lab Results 03/23/24 03/23/24 03/23/24 Range/Units 23:26 23:37 23:38 WBC 7.1 (4.8-10.8) X10*3/uL RBC 4.40 (4.20-5.50) X10*6/uL Hgb 12.7 (12.0-16.0) g/dl Hct 37.0 (37.0-47.0) % MCV 84.1 (80.0-98.0) fL MCH 28.9 (27.0-33.0) pg MCHC 34.3 (31.0-35.0) g/dl RDW 12.3 (11.0-16.0) % Plt Count 320 (160-400) X10*3/uL MPV 9.3 L (9.4-12.3) fL Immature Gran % (Auto) 0.1 (0.0-0.4) % Neut % (Auto) 48.8 (45-73) % Lymph % (Auto) 39.9 (20-40) % [place] % (Auto) 9.6 (2-11) % Eos % (Auto) 1.0 (0-4) % Baso % (Auto) 0.6 (0-2) % Lymph # (Auto) 2.8 (1.2-4.9) X10*3/uL [place] # (Auto) 0.7 (0.1-1.2) X10*3/uL Eos # (Auto) 0.1 (0.0-0.4) X10*3/uL Baso # (Auto) 0.0 (0.0-0.2) X10*3/uL Abs Immat Gran (auto) 0.01 (0.00-0.03) X10*3/uL Absolute Neuts (auto) 3.5 (2.0-8.3) x10*3/uL Absolute Nucleated RBC 0.000 (0.0-0.012) X10*3/uL Nucleated RBC % (auto) 0.0 (0.0-0.2) /100WBC Sodium 140 (135-145) mmol/L Potassium 3.7 (3.3-5.1) mmol/L Chloride 107 (96-108) mmol/L Carbon Dioxide 25 (22-29) mmol/L Anion Gap 12 (12-20) BUN 11 (9-16) mg/dL Creatinine 0.71 (0.5-1.4) mg/dL Estim Creat Clear Calc 102.4 Estimated GFR > 60 POC Glucose 73 (60-115) mg/dL Random Glucose 68 (60-115) mg/dL Calcium 9.5 (8.4-10.2) mg/dL Total Bilirubin 0.2 (0.0-1.0) mg/dL Direct Bilirubin < 0.2 (0.0-0.5) mg/dL AST 16 (5-31) U/L ALT 11 (0-31) U/L Alkaline Phosphatase 44 (39-117) U/L Troponin I High Sens < 2.7 (<3.5-17.0) ng/L Total Protein 7.6 (6.5-8.0) g/dL Albumin 4.4 (3.5-5.0) g/dL Urine Color Red A Urine Appearance Turbid Urine pH 5.5 (5.0-9.0) Ur Specific [place] <= 1.005 (1.005-1.025) Urine Protein 100 (2+) H (Neg-Trace) mg/dL Urine Glucose (UA) Negative (Negative) mg/dL Urine Ketones Negative (Negative) mg/dL Urine Blood Large (3+) H (Negative) Urine Nitrite Negative (Negative) Ur Leukocyte Esterase Moderate (2+) H (Negative) Urine RBC >20 H (0-2) /HPF Urine WBC 21-50 (0-5) /HPF Ur Squamous Epith Cells 3-5 (0-2) /HPF Urine Bacteria 3+ (None Seen) Hyaline Casts 0-2 (0-2) /LPF Urine Test NEGATIVE (NEGATIVE) Independent Interpretation I performed an independent interpretation of an: EKG (Sinus heart rate is 70 NJ QRS QTC normal there is PVCs noted) and CT Scan (No grossly noted on the CT scan head) Radiology Impression Discussion of test interpretation with radiology: I have reviewed the radiologist's reading. Independent Historian Clinical information obtained from an independent historian. 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
[2024-03-23] MEDS: 0.9 % Sodium Chloride 1,000 ML 999 ML IV (23:40)
--- OUTSIDE RECORDS SUMMARY | 2024-03-23 23:44 | XMS_ITS | Continuity of Care Document ---
Author Organization [facility] Address [address] [place] [address]- Care Team Providers Care Merchandising Execution Manager Name Role Phone Anthony JUNIOR, Muna Cabrera Primary Care Physician Encounter [facility] Date(s): 08/26/21 - 09/25/21 [facility] [address] [place] [address]- Allergies, Adverse Reactions, Alerts Substance Reaction Severity Status Bee Stings Active Dust Active Other Environmental Allergy 1 Bee sting Active 1Dust Medications Ibuprofen Refills 0, Maintenance, 12/01/20 15:09:00 EST, Partial fill upon patient request if the prescription is for a schedule II opioid drug. Start Date: 12/01/20 Status: Ordered Multivitamin Daily, 0 Refills, Maintenance, 04/03/20 15:11:00 EDT Start Date: 04/03/20 Status: Ordered Problem List Condition Effective Dates Status Health Status Inform ant NICK III (cervical intraepith elial neoplasia III)(Confirmed) Active Colloid cyst of brain(Confirmed) Active Migraines(Confirmed) Active Breast pain, left(Confirmed) Active Well woman exam with routine gynecological exam(Confirmed) Active Temporal lobe epilepsy(Confirmed) Active Social History Social History Type Response Smoking Status Never smoker entered on: 08/12/14 Sex
--- OUTSIDE RECORDS SUMMARY | 2024-03-23 23:45 | XMS_ITS | Continuity of Care Document ---
Author Organization [facility] Address [address] [address]- Care Team Providers Care Weigher And Crusher Name Role Phone Muna Cruz MD Primary Care Physician [id number] Date(s): 08/28/21 - 09/04/21 [facility] [address] [address]- Attending Physician: Sherine JUNIOR, Kacie Reesndiz Admitting Physician: Sherine JUNIOR, Kacie Resendiz Referring Physician: Muna Cruz MD Allergies, Adverse Reactions, Alerts Substance Reaction Severity [...] gynecological exam(Confirmed) Active Temporal lobe epilepsy(Confirmed) Active Vital Signs Most recent to oldest [Reference Range]: 1 Height 170 cm (08/28/21 2:35 PM) Weight 59.6 kg (08/28/21 2:35 PM) Oxygen Saturation [94-100 %] 100 % (08/28/21 2:35 PM) Pulse Rate [55-90 bpm] 68 bpm (08/28/21 2:35 PM) Body Mass Index [18.5-24.99] 20.62 (08/28/21 2:35 PM) Blood Pressure [90-138/55-84 mm Hg] 115/ 74mm Hg (08/28/21 2:35 PM) Mode of Delivery (Oxygen) Room air (08/28/21 2:35 PM) Blood pressure sites Arm, left (08/28/21 2:35 PM) Weight Obtained Via Standing scale (08/28/21 2:35 PM) Social History Social History Type Response Smoking Status Never smoker entered on: 08/12/14 Sex
--- OUTSIDE RECORDS SUMMARY | 2024-03-23 23:45 | XMS_ITS | Continuity of Care Document ---
Author Organization [facility] Address [address] [place] [address]- Care Team Providers Care Medical Lab Scientist Name Role Phone Anthony JUNIOR, Muna Cabrera [id number] - [facility]29[facility] [address] [place] [address]- Attending Physician: Miriam Tao MD Admitting Physician: Miriam Tao MD Referring Physician: Muna Cruz MD Allergies, Adverse [...] III)(Confirmed) Active Colloid cyst of brain(Confirmed) Active Family history of breast cancer(Confirmed) Active Migraines(Confirmed) Active Breast pain, left(Confirmed) Active Well woman exam with routine gynecological exam(Confirmed) Active Temporal lobe epilepsy(Confirmed) Active Social History Social History Type Response Smoking Status Never smoker entered on: 08/12/14 Sex
--- OUTSIDE RECORDS SUMMARY | 2024-03-23 23:45 | XMS_ITS | Continuity of Care Document ---
Author Organization [facility] Address [address] [place] [address]- Care Team Providers Care Acoustical Material Worker Name Role Phone Muna Cruz MD Primary Care Physician Encounter [facility] [place] Date(s): 09/09/23 - 10/09/23 [facility] [address] [place] [address]- Allergies, Adverse Reactions, Alerts Substance Reaction Severity Status Bee Stings Active Dust Active Other Environmental Allergy 1 Bee sting Active 1Dust Medications Fish Oil By Mouth, 0 Refills, Maintenance, 08/28/21 14:38:00 EDT, Partial fill upon patient request if the prescription is for a schedule II opioid drug. Start Date: 08/28/21 Status: Ordered Ibuprofen Refills 0, Maintenance, 12/01/20 15:09:00 EST, Partial fill upon patient request if the prescription is for a schedule II opioid drug. Start Date: 12/01/20 Status: Ordered Miscellaneous Rx 0 Refills, Maintenance, Probiotic, 08/28/21 14:37:00 EDT Start Date: 08/28/21 Status: Ordered Multivitamin Daily, 0 Refills, Maintenance, 04/03/20 15:11:00 EDT Start Date: 04/03/20 Status: Ordered Problem List Condition Confirmation Course Effective Dates Status H ealth Status Informant NICK III (cervical intraepithelial neoplasia III) Confirmed Active Colloid cyst of brain Confirmed Active Family history of breast cancer Confirmed Active Migraines Confirmed Active Breast pain, left Confirmed Active Well woman exam with routine gynecological exam Confirmed Active Temporal lobe epilepsy Confirmed Active Social History Social History Type Response Smoking Status Never smoker entered on: 08/12/14 Sex Patient Care team information Care Team Personnel Name: Cammy Garcia MD Position: S PHONE TECHNICIAN MD Member Role: Lifetime PHONE TECHNICIAN Physician Address: Address: [address] [facility] [place] [address]- [place] Name: Anthony JUNIOR , Muna Cabrera Position: S Physician - Primary Care Member Role: PCP Address: Address: [address] [place] [address]- [place] Care Team Related Persons Name: AMANDA RIOS Name: NATASHA HU
--- OUTSIDE RECORDS SUMMARY | 2024-03-23 23:45 | XMS_ITS | Continuity of Care Document ---
Author Organization [facility] Address [address] [address]- Care Team Providers Care Health And Wellness Coach Name Role Phone Anthony JUNIOR, Muna Cabrera Primary Care Physician Encounter [facility] [place] ACCT R [id number] Date(s): 08/14/21 - 09/13/21 [facility] [address] [address]- Attending Physician: Fernando Armijo Admitting Physician: Fernando Armijo Referring Physician: AdmtrFernando Allergies, Adverse Reactions, Alerts Substance Reaction Severity [...]
--- OUTSIDE RECORDS SUMMARY | 2024-03-23 23:45 | XMS_ITS | Continuity of Care Document ---
Author Organization [facility] Address [address] [place] [address]- Care Team Providers Care Shotgun Shell Assembly Machine Operator Name Role Phone Anthony JUNIOR, Muna Cabrera Primary Care Physician [place] [facility]07[place]20 - 05/07/20 [facility] [address] [place] [address]- [facility] Attending Physician: Fernando Armijo Admitting Physician: Fernando Armijo Referring Physician: AdmtrFernando Allergies, Adverse Reactions, Alerts Substance Reaction Severity Status Bee Stings Active Dust Active Other Environmental Allergy 1 Bee sting Active 1Dust Medications Multivitamin Daily, 0 Refills, Maintenance, 04/03/20 15:11:00 EDT Start Date: 04/03/20 Status: Ordered Problem List Condition Effective Dates Status Health Status Inform ant NICK III (cervical intraepith elial neoplasia III)(Confirmed) Active Colloid cyst of brain(Confirmed) Active Migraines(Confirmed) Active Temporal lobe epilepsy(Confirmed) Active Social History Social History Type Response Smoking Status Never smoker entered on: 08/12/14 Sex
--- OUTSIDE RECORDS SUMMARY | 2024-03-23 23:45 | XMS_ITS | Continuity of Care Document ---
Author Organization [facility] Address [address] [place] [address]- Care Team Providers Care Title I Teacher Name Role Phone Anthony JUNIOR, Muna Cabrera Primary Care Physician [place] [facility] [place] 07/07/23 - 08/06/23 [facility] [address] [place] [address]- Allergies, Adverse Reactions, Alerts Substance Reaction Severity [...] Team Personnel Name: Cammy Garcia MD Position: [facility] ASSISTED LIVING NURSING DIRECTOR MD Member Role: Lifetime ASSISTED LIVING NURSING DIRECTOR Physician Address: Address: [address] [place] [address] Women's [facility] [place] [address]- Name: Anthony JUNIOR , Muna Cabrera Position: [facility] Physician - Primary Care Member Role: PCP Address: Address: [address] [place] [address]- Care Team Related Persons Name: AMANDA RIOS Name: NATASHA HU
--- OUTSIDE RECORDS SUMMARY | 2024-03-23 23:45 | XMS_ITS | Continuity of Care Document ---
Author Organization [facility] Address [address] [place] [address]- Care Team Providers Care Laborer Pullet Farm Name Role Phone Anthony JUNIOR, Muna Cabrera Primary Care Physician [place] [facility] [place] Date(s): 04/03/20 - 04/10/20 [facility] [address] [place] [address]- [facility] Attending Physician: Gaye Tidwell MD Allergies, Adverse Reactions, Alerts Substance Reaction [...] Active Migraines(Confirmed) Active Temporal lobe epilepsy(Confirmed) Active Vital Signs Most recent to oldest [Reference Range]: 1 Height 167.5 cm (04/03/20 3:09 PM) Weight 59 kg (04/03/20 3:09 PM) Body Mass Index [18.5-24.99] 21.03 (04/03/20 3:09 PM) Blood Pressure [90-138/55-84 mm Hg] 92/5 0mm Hg (04/03/20 3:09 PM) Temperature [96.8-100.4 DegF] 98.1 DegF (04/03/20 3:09 PM) Blood pressure sites Arm, right (04/03/20 3:09 PM) Temperature Route Temporal (04/03/20 3:09 PM) Dry Weight 59 kg (04/03/20 3:09 PM) Weight Obtained Via Standing scale (04/03/20 3:09 PM) Dry Weight Obtained Via Standing scale (04/03/20 3:09 PM) Social History Social History Type Response Smoking Status Never smoker entered on: 08/12/14 Sex
--- OUTSIDE RECORDS SUMMARY | 2024-03-23 23:45 | XMS_ITS | Continuity of Care Document ---
Author Organization [facility] Address [address] [place] [address]- Care Team Providers Care Manager Produce Name Role Phone Anthony JUNIOR, Muna Cabrera Primary Care Physician [place] [facility] [place] Date(s): 01/24/20 - 02/03/20 [facility] SKEINS YARN EXAMINER [address] [place] [address]- [facility] Attending Physician: Fernando Armijo Admitting Physician: Fernando Armijo Referring Physician: Fernando Armijo Allergies, Adverse Reactions, Alerts Substance Reaction Severity Status Bee Stings Active Dust Active Other Environmental Allergy 1 Bee sting Active 1Dust Problem List Condition Effective Dates Status Health Status Inform ant NICK III (cervical intraepith elial neoplasia III)(Confirmed) Active Colloid cyst of brain(Confirmed) Active Migraines(Confirmed) Active Temporal lobe epilepsy(Confirmed) Active Social History Social History Type Response Smoking Status Never smoker entered on: 08/12/14 Sex
--- OUTSIDE RECORDS SUMMARY | 2024-03-23 23:45 | XMS_ITS | Continuity of Care Document ---
Author Organization [facility] Address [address] [place] [address]- Care Team Providers Care Automotive Service Manager Name Role Phone Anthony JUNIOR, Muna Cabrera Primary Care Physician Encounter [facility] Date(s): 11/20/20 - 12/20/20 [facility] [address] [place] [address]- Allergies, Adverse Reactions, Alerts Substance Reaction Severity [...]
--- OUTSIDE RECORDS SUMMARY | 2024-03-23 23:45 | XMS_ITS | Continuity of Care Document ---
Author Organization [facility] Address [address] [facility] [address] [place] [address]- Care Team Providers Care Tie Knitter Helper Name Role Phone Anthony JUNIOR, Muna Cabrera Primary Care Physician Encounter 08/27/21 - 09/03/21 [facility] [address], [facility] [address] [place] [address]- Attending Physician: Gaviota Garza NP Admitting Physician: Greg BALDERRAMA, Gaviota Cabrera Referring Physician: Greg BALDERRAMA, Gaviota Cabrera Allergies, Adverse Reactions, Alerts Substance Reaction Severity [...]
--- OUTSIDE RECORDS SUMMARY | 2024-03-23 23:45 | XMS_ITS | Continuity of Care Document ---
Author Organization [facility] Address [address] [facility] 2nd [address] [place] [address]- Care Team Providers Care Armature Bander Name Role Phone Muna Cruz MD Primary Care Physician [place] [facility]): 02[place]10/24 - 02/17/24 [facility] [address] [place] [address]- Encounter Diagnosis Palpitations(Discharge Diagnosis) - 02/10/24 Attending Physician: Hair Browne MD Admitting Physician: Hair Browne MD Referring Physician: Muna Cruz MD Allergies, [...] Family history of breast cancer Confirmed Active Dense breast tissue on mammogram Confirmed Active Migraines Confirmed Active Breast pain, left Confirmed Active Well woman exam with routine gynecological exam Confirmed Active Temporal lobe epilepsy Confirmed Active Diagnosis Diagnosis Type Effective Dates Health Status Cl inical Service Informant Palpitations Discharge Diagnosis 02/10/24 Vital Signs Most recent to oldest [Reference Range]: 1 Height 170 cm (02/10/24 10:30 AM) Weight 61.54 kg (02/10/24 10:30 AM) Oxygen Saturation [94-100 %] 74 % *L* (02/10/24 10:30 AM) Pulse Rate [55-90 bpm] 74 bpm (02/10/24 10:30 AM) Body Mass Index [18.5-24.99 kg/m2] 21.29 kg/m2 (02/10/24 10:30 AM) Blood Pressure [90-138/55-84 mm Hg] 110/ 74mm Hg (02/10/24 10:30 AM) Mode of Delivery (Oxygen) Room air (02/10/24 10:30 AM) Blood pressure sites Arm, left (02/10/24 10:30 AM) Weight Obtained Via Standing scale (02/10/24 10:30 AM) Social History Social History Type Response Smoking Status Never smoker entered on: 08/12/14 Sex EKG study * Event Display: ECG 12-Lead Authored Date: Please click on pdf link to open report * Event Display: ECG 12-Lead Authored Date: Ventricular Rate: 57 BPM Atrial Rate: 57 BPM P-R Interval: 148 ms QRS Duration: 88 ms Q-T Interval: 428 ms QTC Calculation(Bazett): 416 ms P Reading: 59 degrees R Reading: 80 degrees T Reading: 62 degrees Sinus bradycardia Otherwise normal ECG No previous ECGs available Confirmed by JOSE M FERMIN ([id number]) on 02/10/2024 1:08:16 PM [place]: JOSE M FERMIN Cardiology Outpatient Note * Hollie JUNIOR, Hair: PERFORM Event Display: Cardiology Note Office Authored Date: Patient: ??CHARAN HANSEN ? Age:??38 Years?Sex:??Female?:??1985?? 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 ??She is seen??[facility] in the past.?? She is originally from [place]. ??She reports having an intermittent palpitation syndrome for years. ??She describes it??as a boom sensation that can last as long as 15 seconds at a time. ??She does??stay in shape and runs hernesto quently.?? She has had a prior event monitor with the [facility] which is shown some isolated PVCs, and brief runs of an atrial tachycardia.?? 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 Physical Exam Vitals & Measurements HR:??74??(Peripheral)?? BP:??110/74?? SpO2:??74%?? HT:??170??cm?? WT:??61.54??kg?? BMI:??21.29?? Weight lb/oz: 135 lb 11 oz GENERAL: ??Alert and oriented x3, no acute distress. HEENT: Mucous membranes pink and moist. ?? NECK: ??No JVD?? LUNGS: Clear to auscultation bilaterally. ??No crackles, wheezing, rhonchi. ?? HEART: ??Regular rate and rhythm, normal S1, S2. ??No murmurs, rubs, or gallops.?? ABDOMEN: Soft, nontender, nondistended.?? EXTREMITIES: ??No pitting edema, cyanosis, clubbing. ?? PULSES: 2+ radials SKIN: Warm and well perfused. ?? NEURO: ??Oriented to person, time, and place, following commands, and moving all extremities.?? MUSCULOSKELETAL: ??Negative.?? Assessment/Plan 1.??Palpitations ??Explained the diagnosis of PVCs.?? Offered her a prescription for low-dose metoprolol however sheis not interested in going on a medication. ??Reassurance provided.?? Updating her echo for follow-up of her??thickened appearing/?myxomatous appearing mitral valve??that was described on her 2019 ech o with [facility].?She will need a phone call with the results and??can follow-up with me in 1 year.?? Ordered: Echo Complete ?? Orders: ECG 12 Lead Allergies Bee Stings Dust Other Environmental Allergy??(Bee sting) Home Medications Fish Oil, By Mouth Ibuprofen Miscellaneous Rx Multivitamin, Daily Diagnostic Impression ECG ECG 12-Lead * Preliminary * ?? 10:26:00 Ventricular Rate: 57 BPM Atrial Rate: 57 BPM P-R Interval: 148 ms QRS Duration: 88 ms Q-T Interval: 428 ms QTC Calculation(Bazett): 416 ms P Reading: 59 degrees R Reading: 80 degrees T Reading: 62 degrees Sinus bradycardia Otherwise normal ECG No previous ECGs available ?? [place]: , ?? ECG 12-Lead * Preliminary * ?? 10:26:00 Please click on pdf link to open report Problem List/Past Medical History Ongoing Breast pain, left NICK III (cervical intraepithelial neoplasia III) Colloid cyst of brain Dense breast tissue on mammogram Family history of breast cancer Migraines Temporal lobe epilepsy Well woman exam with routine gynecological exam Procedure/Surgical History Biopsy of breast, left: 2020 LEEP: 2019 Colonoscopy Follow-Up Appointments Added Follow Up ?Time Frame ?Comments Hair Browne MD?1 Years?Echo in the meantime, non-urgent (re-eval??mitral valve which was thickened appearing on last echo in 2020 at [facility]) Social History Alcohol Use: occasionally. Employment/School Status: Student. 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 Home/Environment Other: from [place]. travels there frequently. Sexual Sexually involved in last 6 months: Yes. Sexual orientation: Heterosexual. Gender identity: Female. Substance Abuse Use: Never. Tobacco Use: Never smoker. Family History Mother: Diabetes type; Hypertension Father: Hypertension Sister: Cancer of breast Sister: Cancer of breast Note * [place]: PERFORM, SIGN, VERIFY Event Display: Patient Education/Instruction Authored Date: [id number] [facility] *[facility] [place] Clinical Summary Name CHARAN HANSEN Age 38 Years 1985 PCP Anthony JUNIOR , Muna Cabrera PCP Visit Date 02/10/2024 10:17:00 Additional Instructions: Scheduled Appointments?? Future Appointments ?*[facility] ?[address]??[place],??[place],??[address] ?Phone:??--?Fax:??-- ?Appt. Date:??03/08/2024?9:40 AM ?Scheduled Provider:??Gay JUNIOR, Paula Marshall Follow-Up Instructions ?? With: Address: When: Hair Browne MD In 1 year Comments: Echo in the meantime, non-urgent (re-eval??mitral valve which was thickened appearing on last echo in 2019 at [facility]) Diagnosis Palpitations Medications: Please continue your medications until treatment is completed or stopped by your provider. Discuss any questions related to medications with your provider. Medications to Continue with No Changes These medications were not printed or sent to your pharmacy Ibuprofen Next Dose: Miscellaneous Rx Probiotic. Next Dose: Multivitamin Daily. Next Dose: Roscoe-3 Polyunsaturated Fatty Acids (Fish Oil) Oral. Next Dose: Allergy Info:?? Other Environmental Allergy; Dust; Bee Stings Medications Given This Visit Future Orders ?Echo Complete? Order Date:02/10/24?- Complete within?4 months Future Orders ?Echo Complete? Order Date:02/10/24?- Complete within?4 months Vital Signs Height 170 cm Weight 61.54 kg BMI 21.29 kg/m2 Blood Pressure 110 mm Hg/74 mm Hg Temperature Pulse Rate 74 bpm Respiratory Rate 02 Sat Mode of Delivery 74 %/Room air You can now view a summary of your hospital visit from the comfort of your home through a free online portal called [employer]. [employer] is a website that allows you to securely view your medical information including discharge summary, medications and follow-up visits. ??You can alsosend a secure electronic message to your doctor???s office to request appointments, renew medications or just ask a question. You can enroll at [email or web address] or register during your next office visit. Disclaimer:?? The information provided is of a general nature and is intended to be used in conjunction with the recommendations and advice of your health care practitioner. ??Every effort has been made to ensure that the information provided is accurate and complete at the time it is provided to you however, as your needs change, or, as new ??information becomes available, different or additional instructions may be required. If you have questions, please consult with your primary care provider or pharmacist, as appropriate. ??This information is not intended to serve as substitution for assessment and evaluation by a qualified health care provider. If you do not have a primary care provider, you may find a [facility] provider by calling [facility] [employer] Link at [phone]. [facility], in keeping with [facility] guidance, no longer requires face masks for staff, patientsor visitors in most situations. Similar to time spent indoors at other locations, there is the chance that you were exposed to respiratory viruses during your time with us (such as flu or COVID-19).? If you develop symptoms concerning for a viral respiratory infection, please seek testing (and treatment if indicated) from your medical provider or home test kit. For information about the plan of care including goals and instructions for your diagnosis, please see the patient education orders section of this document. Patient Education Materials?? The content of this educational material or handout may have been modified, supplemented, or adapted from its original content and format to support your individualized medical care. Patient Care team information Care Team Personnel Name: Cammy Garcia MD Position: [facility] PIPE FITTER SUPERVISOR MAINTENANCE MD Member Role: Lifetime PIPE FITTER SUPERVISOR MAINTENANCE Physician Address: Address: [address] [place] [address]'s [facility] Pole [place] [address]- Name: Muna Cruz MD Position: [facility] Physician - Primary Care Member Role: PCP Address: Address: [address] [place] [address]- Care Team Related Persons Name: AMANDA RIOS Name: NATASHA HU
--- OUTSIDE RECORDS SUMMARY | 2024-03-23 23:45 | XMS_ITS | Continuity of Care Document ---
Author Organization [facility] Address [address] [address]- Care Team Providers Care Traffic Worker Name Role Phone Anthony JUNIOR, Muna Cabrera Primary Care Physician Encounter [facility] ACCT R [id number] Date(s): 07/13/21 - 07/20/21 [facility] [address] [address]- Attending Physician: Sherine JUNIOR, Kacie Resendiz Admitting Physician: Sherine JUNIOR, Kacie Resendiz Referring Physician: Timbo Lindsey MD Allergies, Adverse Reactions, Alerts Substance Reaction [...] oldest [Reference Range]: 1 Height 170 cm (07/13/21 9:10 AM) Weight 57 kg (07/13/21 9:10 AM) Pulse Rate [55-90 bpm] 58 bpm (07/13/21 9:10 AM) Body Mass Index [18.5-24.99] 19.72 (07/13/21 9:10 AM) Blood Pressure [90-138/55-84 mm Hg] 110/ 60mm Hg (07/13/21 9:10 AM) Blood pressure sites Arm, left (07/13/21 9:10 AM) Weight Obtained Via Patient/family state d (07/13/21 9:10 AM) Social History Social History Type Response Smoking Status Never smoker entered on: 08/12/14 Sex
--- OUTSIDE RECORDS SUMMARY | 2024-03-23 23:45 | XMS_ITS | Continuity of Care Document ---
Author Organization [facility] Address [address] [facility] 2[address] [place] [address]- Care Team Providers Care Route Sales Trainee Name Role Phone Anthony JUNIOR, Muna Cabrera Primary Care Physician En[place] [facility] [place] Date(s): 01/10/24 - 03/04/24 [facility] [place] [address] [place] [address]- Attending Physician: Hair Browne MD Admitting Physician: [...] Care team information Care Team Personnel Name: Jose JUNIOR, Cammy Brooke Position: [facility] SOFTWARE DEVELOPMENT ADVISOR MD Member Role: Lifetime SOFTWARE DEVELOPMENT ADVISOR Physician Address: Address: [address] [place] [address] Women's [facility] [place] [address]- Name: Muna Cruz MD Position: [facility] Physician - Primary Care Member Role: PCP Address: Address: [address] [place] [address]- Care Team Related Persons Name: AMANDA RIOS Name: NATASHA HU
--- OUTSIDE RECORDS SUMMARY | 2024-03-23 23:45 | XMS_ITS | Continuity of Care Document ---
Author Organization [facility] Address [address] [place] [address]- Care Team Providers Care Marble Mechanic Helper Name Role Phone Anthony JUNIOR, Muna Cabrera Primary Care Physician Encounter [facility] Date(s): 05/22/20 - 06/21/20 [facility] [address] [place] [address]- [facility] Allergies, Adverse Reactions, Alerts Substance Reaction Severity [...]
--- OUTSIDE RECORDS SUMMARY | 2024-03-23 23:45 | XMS_ITS | Continuity of Care Document ---
Author Organization [facility] Address [address] [address]- Care Team Providers Care Grocery Store Courtesy Clerk Name Role Phone Anthony JUNIOR, Muna Cabrera Primary Care Physician [place] [facility] [place] [id number] Date(s): 08/28/21 - 09/27/21 [facility] [address] [address]- Attending Physician: Fernando Armijo Admitting Physician: Fernando [...]
--- OUTSIDE RECORDS SUMMARY | 2024-03-23 23:45 | XMS_ITS | Continuity of Care Document ---
Author Organization [facility] Address [address] [address]- Care Team Providers Care Hospital Pharmacy Director Name Role Phone Anthony JUNIOR, Muna Cabrera Primary Care Physician [id number] - 08[facility]21/21 [facility] [address] [address]- Attending Physician: Kacie Basurto MD Admitting Physician: Shreine JUNIOR, Kacie Resendiz Referring Physician: Kacie Basurto MD Allergies, Adverse Reactions, Alerts Substance Reaction [...]
--- OUTSIDE RECORDS SUMMARY | 2024-03-23 23:45 | XMS_ITS | Continuity of Care Document ---
Author Organization [facility] Address [address] [place] [address]- Care Team Providers Care Assisted Living Housekeeper Name Role Phone Anthony JUNIOR, Muna Cabrera Primary Care Physician [place] [facility] [place](s): 08/27/21 - 09/26/21 [facility] [address] [place] [address]- Allergies, Adverse Reactions, Alerts Substance Reaction Severity [...]
--- OUTSIDE RECORDS SUMMARY | 2024-03-23 23:45 | XMS_ITS | Continuity of Care Document ---
Author Organization [facility] Address [address] [place] [address]- Care Team Providers Care Journeyman Operator Assistant Name Role Phone Anthony JUNIOR, Muna Cabrera Primary Care Physician [place] [facility] [place] 03/01/20 [facility] [address] [place] [address]- [facility] Attending Physician: Gaye Tidwell MD Allergies, Adverse [...]
--- OUTSIDE RECORDS SUMMARY | 2024-03-23 23:45 | XMS_ITS | Continuity of Care Document ---
Author Organization [facility] Address [address] [place] [address]- Care Team Providers Care Computer Numerical Control Operator Name Role Phone Anthony JUNIOR, Muna Cabrera Primary Care Physician [place] [facility] [place] 04/07/20 - 04/14/20 [facility] [address] [place] [address]- [facility] Attending Physician: Gaye Tidwell MD Allergies, [...]
--- OUTSIDE RECORDS SUMMARY | 2024-03-23 23:45 | XMS_ITS | Continuity of Care Document ---
Author Organization [facility] Address [address] [place] [address]- Care Team Providers Care Stonehand Name Role Phone Anthony JUNIOR, Muna Cabrera Primary Care Physician [place] [facility] [place] 09[place]21 - 10/08/21 [facility] [address] [facility] [place] [address]- Allergies, Adverse Reactions, Alerts Substance Reaction Severity [...]
--- OUTSIDE RECORDS SUMMARY | 2024-03-23 23:45 | XMS_ITS | Continuity of Care Document ---
Author Organization [facility] ter Address [address] [place] [address]- Care Team Providers Care Mechanical Design Engineer Name Role Phone Anthony JUNIOR, Muna Cabrera Primary Care Physician [place] [facility] [place](s[place] 04/03/20 - 01/08/[address] [address] Attending Physician: Gaviota Garza NP Admitting Physician: Gaviota Garza NP Referring Physician: Gaviota Garza NP Allergies, Adverse Reactions, Alerts Substance Reaction Severity [...]
--- OUTSIDE RECORDS SUMMARY | 2024-03-23 23:45 | XMS_ITS | Continuity of Care Document ---
Author Organization [facility] Address [address] [place] [address]- Care Team Providers Care Geothermal Plant Manager Name Role Phone Anthony JUNIOR, Muna Cabrera Primary Care Physician [place] [facility] [place]21 - 10/04/21 [facility] [address] [facility] [place] [address]- Allergies, Adverse Reactions, Alerts Substance Reaction Severity [...]
--- OUTSIDE RECORDS SUMMARY | 2024-03-23 23:45 | XMS_ITS | Continuity of Care Document ---
Author Organization [facility] Address [address] [facility], [address] [place] [address]- Care Team Providers Care Laborer Plumbing Name Role Phone Anthony JUNIOR, Muna Cabrera Primary Care Physician Encounter 12/07/19 - 12/14/19 [facility] [address], [address] [place] [address]- [phone] Attending Physician: Muna Cruz MD Admitting Physician: Muna Cruz MD Referring Physician: Muna Cruz MD Allergies, Adverse Reactions, Alerts Substance Reaction Severity Status Bee Stings Active Dust Active Other Environmental Allergy 1 Bee sting Active 1Dust Problem List Condition Effective Dates Status Health Status Inform ant Colloid cyst of brain(Confirmed) Active Migraines(Confirmed) Active Pain pelvic(Confirmed) Active Right lower quadrant pain(Confirmed) Active Temporal lobe epilepsy(Confirmed) Active Social History Social History Type Response Smoking Status Never smoker entered on: 08/12/14 Sex
--- OUTSIDE RECORDS SUMMARY | 2024-03-23 23:45 | XMS_ITS | Continuity of Care Document ---
Author Organization [facility] Address [address] [address]- Care Team Providers Care Humanities Professor Name Role Phone Anthony JUNIOR, Muna Cabrera Primary Care Physician [id number] Date[facility] 01/05/24 - 02/04/24 [facility] [place] [facility] [address] [place] [address]- Allergies, Adverse Reactions, Alerts Substance Reaction Severity [...] Team Personnel Name: Cammy Garcia MD Position: [facility] SUPERVISOR CHANNEL PROCESS MD Member Role: [employer]etime SUPERVISOR CHANNEL PROCESS Physician Address: Address: [address] [place] [address]'s [facility] [place] [address]- [place] Name: Muna Cruz MD Position: [facility] Physician - Primary Care Member Role: PCP Address: Address: [address] [place] [address]- Care Team Related Persons Name: AMANDA RIOS Name: NATASHA HU
--- OUTSIDE RECORDS SUMMARY | 2024-03-23 23:45 | XMS_ITS | Continuity of Care Document ---
Author Organization [facility] Address [address] [place] [address]- Care Team Providers Care Director Toxicology Name Role Phone Anthony JUNIOR, Muna Cabrera Primary Care Physician [place] [facility] [place] Date(s): 08/26/21 - 09/25/21 [facility] [address] [facility] [facility] [place] [address]- Allergies, Adverse Reactions, Alerts Substance Reaction Severity [...]
--- OUTSIDE RECORDS SUMMARY | 2024-03-23 23:45 | XMS_ITS | Continuity of Care Document ---
Author Organization [facility] Address [address] [place] [address]- Care Team Providers Care Wheelage Clerk Name Role Phone Anthony JUNIOR, Muna Cabrera Primary Care Physician [id number]/08/24 - 03/15/24 [facility] [address] [place] [address]- Attending Physician: Gay JUNIOR, Paula Marshall Referring Physician: Robson BALDERRAMA, Sari Allergies, Adverse Reactions, Alerts Substance Reaction Severity Status Bee Stings Active Dust Active Other Environmental Allergy 1 Bee sting Active 1Dust Immunizations Given and Recorded Vaccine Date Status Refusal Reason hepatitis B adult vaccine 12/15/23 Recorded tetanus/diphtheria/pertussis, acel(Tdap) 07/08/23 Recorded Medications Fish Oil By Mouth, 0 Refills, Maintenance, 08/28/21 14:38:00 EDT, Partial fill upon patient request if the prescription is for a schedule II opioid drug. Start Date: 08/28/21 Status: Ordered Ibuprofen 200 mg, By Mouth, PRN, Refills 0, Maintenance, Headache, 12/01/20 15:09:00 EST, Partial fill upon patient request if the prescription is for a schedule II opioid drug. Start Date: 12/01/20 Stop Date: 03/09/24 Status: Ordered Multivitamin Daily, 0 Refills, Maintenance, 04/03/20 15:11:00 EDT Start Date: 04/03/20 Status: Ordered Vitamin C By Mouth, Daily, 0 Refills, Maintenance, 03/08/24 10:27:00 EDT, Partial fill upon patient request if the prescription is for a schedule II opioid drug. Start Date: 03/08/24 Status: Ordered Vitamin D3 1000 intl units oral capsule 1 capsule = 25 mcg, By Mouth, Daily, 0 Refills, Maintenance, 03/08/24 10:27:00 EDT, Partial fill upon patient request if the prescription is for a schedule II opioid drug. Start Date: 03/08/24 Status: Ordered Problem List Condition Confirmation Course Effective Dates Status H ealth Status Informant Colloid cyst of brain Confirmed Active Family history of breast cancer Confirmed Active History of cervical dysplasia Confirmed Active Dense breast tissue on mammogram Confirmed Active Migraines Confirmed Active Breast pain, left Confirmed Active Well woman exam with routine gynecological exam Confirmed Active Temporal lobe epilepsy Confirmed Active Postcoital UTI Confirmed Active Vital Signs Most recent to oldest [Reference Range]: 1 Height 170 cm (03/08/24 9:46 AM) Weight 62.0 kg (03/08/24 9:46 AM) Body Mass Index [18.5-24.99 kg/m2] 21.45 kg/m2 (03/08/24 9:46 AM) Blood Pressure [90-138/55-84 mm Hg] 98/6 4mm Hg (03/08/24 9:46 AM) Blood pressure sites Arm, left (03/08/24 9:46 AM) Weight Obtained Via Standing scale (03/08/24 9:46 AM) Social History Social History Type Response Smoking Status Never (less than 100 in lifetime) entered on: 03/08/24 Sex Note * Ragnel Presley: PERFORM Event Display: Patient Education/Instruction Authored Date: [id number] Ambulatory Adult Visit Summary [facility] [address] [place] [address] Name: CHARAN HANSEN : 1985?? Visit: 03/08/2024 09:42?? Ambulatory Visit Instructions ?? Your Care Team Primary Care Provider Anthony JUNIOR , Muna Cabrera? This Visit Provider Paula Rashid MD Your Diagnosis Fertility testing Encounter for preconception consultation Vaginal discharge History of cervical dysplasia Vitals Signs Systolic Blood Pressure: 98 mm Hg Height: 170 cm Diastolic Blood Pressure: 64 mm Hg Weight: 62 kg ?? Body Mass Index: 21.45 kg/m2 ?? Body surface area: 1.71 What to do next Instructions From Your Provider Please keep a calendar /diary of menses and days of intercourse to bring to follow up visit.?? Please contact our office for follow up if having continued symptoms??or concerns for UTI symptoms after intercourse. Scheduled Follow-Up Appointments Tuesday. 2023 3:30 PM EDT ?? Where: [facility] Status: Pending Follow-Up Appointments Follow Up with??Gay JUNIOR, Paula Marshall When:??07/02/2024 09:40 AM EDT Where: [address] [facility] [place] [address]- Future Orders Anti Mullerian Hormone - Routine, Once, 03/08/24 10:42:00 EDT, Order for Today, [facility], Blood?? Vaginosis Vaginitis Panel (BV, CV/TV) - Routine, Vaginal Swab, Once, Collected, 03/08/24 10:42:00 EDT, Order for Today, [facility], Swab?? Medications The list below reflects the information in our records and provided by you today along with any changes made during this visit. Please continue your medications until treatment is completed or stopped by your provider. If this is different from the information you have or there are other questions,please contact the prescribing provider. What How Much When Instructions Changed Ibuprofen 200 Milligram Oral As needed for Headache Duration: 1 Days Unchanged Ascorbic Acid (Vitamin C) Oral Daily Unchanged Cholecalciferol (Vitamin D3 1000 intl units oral capsule) 1 capsule Oral Daily Unchanged Multivitamin Daily Unchanged Babbitt-3 Polyunsaturated Fatty Acids (Fish Oil) Oral ?? What When Comments Stop Taking Miscellaneous Rx Probiotic ?? Test Performed Below is a partial list of the tests performed during your Visit. You may have had other tests and procedures not included in this list. Please discuss all test results with your provider. Anti Mullerian Hormone?-- Results Pending -- Vaginosis Vaginitis Panel (BV, CV/TV)?-- Results Pending -- You will be contacted within 72 hours with your results. Medications and Immunizations Administered Medications Given During Visit No medications given during this visit.?? Allergies (NKA means No Known Allergies) Bee Stings Dust Other Environmental Allergy??(Bee sting) Common Emergency Awareness Tips IS IT A STROKE? Act FAST and Check for these signs: FACE Does the face look uneven? ARM Does one arm drift down? SPEECH Does their speech sound strange? TIME Call at any sign of stroke ?? Heart Attack Signs Chest discomfort: Most heart attacks involve discomfort in the center of the chest and lasts more than a few minutes, or goes away and comes back. It can feel like uncomfortable pressure, squeezing, fullness or pain. Discomfort in upper body: Symptoms can include pain or discomfort in one or both arms, back, neck, jaw or stomach. Shortness of breath: With or without discomfort. Other signs: Breaking out in a cold sweat, nausea, or lightheaded. Remember, MINUTES DO MATTER. If you experience any of these heart attack warning signs, call to get immediate medical attention! ?? Smoking can increase your chances of developing chronic health problems and can cause harmful effects to other family members in your house. If you smoke, you are strongly encouraged to quit. Please call [facility] at [phone] or 8-404-240dynaTrace software (6687) or log in to [email or web address] for referrals to smoking cessation programs. ?? The National Suicide Prevention Hotline is available 16/05 if you or someone you know needs to find a reason to keep living. By calling 1-238-249-KAYAK (2404) you'll be connected to a skilled, trained counselor at a crisis center in your area. [facility] [employer] Portal You can view and manage your care through the patient portal or by using a health care latisha of your choosing. [employer] is a website that allows you to securely view your medical information including your hospital discharge summary, office visit summaries, medications and follow-up visits. You can also request appointments, renew medications, and request access to your medical information using a health care latisha of your choosing, or just ask a question. You can enroll at [email or web address] or register during your next office visit. [facility], in keeping with [facility] guidance, no longer requires face masks for staff, patientsor visitors in most situations. Similiar to time spent indoors at other locations, there is the chance that you were exposed to repiratory viruses during your time with us (such as flu or COVID-19). If you develop symptoms concerning for a viral respiratory infection, please seek testing (and treatment if indicated) from your medical provider or home test kit. ?? Disclaimer: The information provided is of a general nature and is intended to be used in conjunction with the recommendations and advice of your health care practitioner. Every effort has been made to ensure that the information provided is accurate and complete at the time it is provided to you however, as your needs change, or, as new information becomes available, different or additional instructions may be required. ?? If you have questions, please consult with your primary care provider or pharmacist, as appropriate. This information is not intended to serve as substitution for assessment and evaluation by a qualified health care provider. If you do not have a primary care provider, you may find a [facility] provider by calling [facility] [employer]cl [facility] at [phone]. Patient Care team information Care Team Personnel Name: Jose JUNIOR, Cammy Brooke Position: [facility] LOAN REVIEW MANAGER MD Member Role: [employer]etime LOAN REVIEW MANAGER Physician Address: Address: [address] [facility] [place] [address]- Name: Muna Cruz MD Position: [facility] Physician - Primary Care Member Role: PCP Address: Address: [address] [place] [address]- Care Team Related Persons Name: AMANDA RIOS Name: NATASHA HU
--- OUTSIDE RECORDS SUMMARY | 2024-03-23 23:45 | XMS_ITS | Continuity of Care Document ---
Author Organization [facility] Address [address] [facility] [address] [place] [place] [address]- Care Team Providers Care Founding Partner Name Role Phone Anthony JUNIOR, Muna Cabrera Primary Care Physician [id number] Date[facility] 10/30/21 - 11/29/21 [facility] [address] [place] [address]- Attending Physician: Fernando Armijo Admitting Physician: Fernando Armijo Referring Physician: Fernando Armijo Referring Physician: Mariela Long Allergies, Adverse Reactions, Alerts Substance Reaction Severity [...]
--- OUTSIDE RECORDS SUMMARY | 2024-03-23 23:45 | XMS_ITS | Continuity of Care Document ---
Author Organization [facility] Address [address] [place] [address]- Care Team Providers Care Floor Renovator Name Role Phone Anthony JUNIOR, Muna Cabrera Primary Care Physician En[place] [facility] [place](s): 08/19/21 - 09/18/21 [facility] [address] [facility] [place] [address]- Allergies, Adverse Reactions, Alerts Substance Reaction Severity [...]
--- OUTSIDE RECORDS SUMMARY | 2024-03-23 23:45 | XMS_ITS | Continuity of Care Document ---
Author Organization [facility] Address [address] [place] [address]- Care Team Providers Care Aix Administrator Name Role Phone Muna Cruz MD Primary Care Physician [place] [facility] [place]23 - 09/07/23 [facility] [address] [facility] [place] [address]- Allergies, Adverse Reactions, Alerts Substance Reaction Severity [...] Personnel Name: Cammy Garcia MD Position: S PLC ENGINEER MD Member Role: Lifetime PLC ENGINEER Physician Address: Address: [address] [facility] Emergency [place] [address]- [place] Name: Anthony JUNIOR , Muna Cabrera Position: S Physician - Primary Care Member Role: PCP Address: Address: [address] [place] [address]- [place] Care Team Related Persons Name: AMANDA RIOS Name: NATASHA HU
--- OUTSIDE RECORDS SUMMARY | 2024-03-23 23:45 | XMS_ITS | Continuity of Care Document ---
Author Organization [facility] Address [address] [place] [address]- Care Team Providers Care Hand Or Machine Paster Name Role Phone Anthony JUNIOR, Muna Cabrera Primary Care Physician [place] [facility] [place] Date(s): 02/10/24 - 03/11/24 [facility] [place] [address] [place] [address]- Attending Physician: Fernando Armijo Admitting Physician: AdmtrFernando Referring Physician: Admtr, Ar8 Allergies, Adverse Reactions, Alerts Substance Reaction Severity [...] epilepsy Confirmed Active Postcoital UTI Confirmed Active Social History Social History Type Response Smoking Status Never (less than 100 in lifetime) entered on: 03/08/24 Sex Patient Care team information Care Team Personnel Name: Cammy Garcia MD Position: [facility] PSYCH ARNP MD Member Role: Lifetime PSYCH ARNP Physician Address: Address: [address] [place] [address]'s [place] [address]- Name: Muna Cruz MD Position: [facility] Physician - Primary Care Member Role: PCP Address: Address: [address] [place] [address]- Care Team Related Persons Name: AMANDA RIOS Name: NATASHA HU
--- OUTSIDE RECORDS SUMMARY | 2024-03-23 23:45 | XMS_ITS | Continuity of Care Document ---
Author Organization [facility] Address [address] [place] [address]- Care Team Providers Care Paid Search Marketing Strategist Name Role Phone Anthony JUNIOR, Muna Cabrera Primary Care Physician [place] [facility] [place] 01[place] - 01/31/20 [facility] FOOD SAFETY TECHNICIAN [address] [place] [address]- [facility] Attending Physician: Gaye Tidwell MD [...]
--- OUTSIDE RECORDS SUMMARY | 2024-03-23 23:45 | XMS_ITS | Continuity of Care Document ---
Author Organization [facility] Address [address] [facility] [address] [place] [address]- Care Team Providers Care Sales Service Professional Name Role Phone Anthony JUNIOR, Muna Cabrera Primary Care Physician Encounter 08/25/21 - 09/01/21 [facility] [address], [facility] [address] [place] [address]- Attending Physician: Gaviota Garza NP Admitting Physician: [...]
--- OUTSIDE RECORDS SUMMARY | 2024-03-23 23:45 | XMS_ITS | Continuity of Care Document ---
Author Organization [facility] Address [address] [place] [address]- Care Team Providers Care Fence Rider Name Role Phone Anthony JUNIOR, Muna Cabrera Primary Care Physician [place] [facility] [place] 04/13/21 - 04/20/21 [facility] [address] [place] [address]- Attending Physician: Gaye Tidwell MD Allergies, Adverse [...] oldest [Reference Range]: 1 Height 170 cm (04/13/21 10:07 AM) Weight 60.1 kg (04/13/21 10:07 AM) Body Mass Index [18.5-24.99] 20.8 (04/13/21 10:07 AM) Blood Pressure [90-138/55-84 mm Hg] 104/ 60mm Hg (04/13/21 10:07 AM) Blood pressure sites Arm, right (04/13/21 10:07 AM) Dry Weight 60.1 kg (04/13/21 10:07 AM) Weight Obtained Via Standing scale (04/13/21 10:07 AM) Dry Weight Obtained Via Standing scale (04/13/21 10:07 AM) Social History Social History Type Response Smoking Status Never smoker entered on: 08/12/14 Sex
--- OUTSIDE RECORDS SUMMARY | 2024-03-23 23:45 | XMS_ITS | Continuity of Care Document ---
Author Organization [facility] Address [address] [address]- Care Team Providers Care Internal Control Consultant Name Role Phone Anthony JUNIOR, Muna Cabrera Primary Care Physician [facility] [id number] Date(s): 03/09/24 - 03/16/24 [place] [id number] [address]- Attending Physician: Hair Browne MD Admitting Physician: Hair Browne MD Referring Physician: Hair Browne MD Allergies, Adverse Reactions, Alerts Substance Reaction [...] 100 in lifetime) entered on: 03/08/24 Sex US Heart * Event Display: Echocardiogram - Complete Authored Date: [id number] Transthoracic Echocardiography Report (TTE) Patient Demographics Patient Name CHARAN HANSEN Date of Study 03/09/2024 Corporate Gender Female Facility Race Unknown Ethnicity Date of 1985 Height: 67 inches Age 38 year(s) Weight: 136.69 pounds Accession Number [id number] BSA: 1.72 m2 Room Number BMI: 21.41 kg/m2 Referring Physician Hair Browne MD Interpreting Physician Rojelio Ashley MD Director Radiation Oncology Hamilton Duff Indications Palpitations. Study Data Type of Study TTE procedure:Echo Complete-Doppler, Colorflow, M-Mode. Study Date03/09/2024 Start Time: 03:07 PM Study Location: [facility] Echo Study Status: Echo lab Patient Status: Routine Technical Quality: Adequate Blood Pressure:98/64 mmHg EKG: Within normal limits HR: 73 bpm 2D Measurements LV Diastolic Dimension: 4 cm LV Systolic Dimension: 2.8 cm LV Septum Diastolic: 0.9 cm LV PW Diastolic: 0.8 cm AO Root Dimension: 3 cm LA Dimension: 3 cm LA ESV (BP):39.3 ml LVOT Stroke Volume: 95.93 ml LA ESV Index: 23 ml/m2 Stroke Volume Index55.77 ml/m2 LVOT: 2.3 cm Cardiac Index:4.07 l/min/m2 Ascending Aorta:2.7 cm Doppler Measurements AV Peak Velocity: 141 cm/s MV Peak E-Wave: 99.4 cm/s AV Peak Gradient: 7.95 mmHg MV Peak A-Wave: 65.1 cm/s AV Mean Gradient: 4 mmHg MV E/A Ratio: 1.53 AV VTI:28.4 cm MV P1/2t: 72 msec LVOT Peak Velocity: 111 cm/s LVOT VTI23.1 cm MV Deceleration Time: 245 msec AV Area (Continuity):3.38 cm2 MV Area (PHT): 3.06 cm2 TR Velocity:235 cm/s TR Gradient:22.09 mmHg Estimated RAP:5 mmHg Estimated RVSP: 27.1 mmHg E' Septal Velocity: 10.9 cm/s E' Lateral Velocity: 13.3 cm/s E/Med E':9.291805 E/Lat E':7.192270 Cardiac Anatomy Left Ventricle/Interventricular Septum The left ventricle is normal in size, wall thickness and systolic function. The ejection fraction is 65-70%. No regional wall motion abnormalities seen. Left Atrium/Interatrial Septum The left atrium is normal in size. Aortic Valve The aortic valve leaflet opening is normal . There is no aortic stenosis. There is no significant aortic regurgitation. Mitral Valve The mitral valve is grossly normal. There is trace mitral regurgitation. Aorta The aortic root is normal in size. Right Ventricle The right ventricular size and function appears grossly normal. Right Atrium The right atrium is normal in size. Pulmonic Valve The pulmonic valve velocity is normal. Tricuspid Valve There is mild tricuspid valve regurgitation. Pumonary Artery The pulmonary artery systolic pressure estimation is within normal limits. Venous Structures The inferior vena cava appears grossly normal. Inferior vena cava inspiratory collapse is normal . Pericardium/Extracardiac There is no significant pericardial effusion. Summary The left ventricle is normal in size, wall thickness and systolic function. The ejection fraction is 65-70%. No regional wall motion abnormalities seen. The right ventricular size and function appears grossly normal. The pulmonary artery systolic pressure estimation is within normal limits. Comparison No prior study available for comparison. Signature * Event Display: Echocardiogram - Complete Authored Date: [id number] Patient Care team information Care Team Personnel Name: Jose JUNIOR, Cammy Brooke Position: [facility] STRING LASTER MD Member Role: Lifetime STRING LASTER Physician Address: Address: [address] [place] [address] [place] [address]- Name: Anthony JUNIOR , Muna Cabrera Position: [facility] Physician - Primary Care Member Role: PCP Address: Address: [address] [place] [address]- Care Team Related Persons Name: AMANDA RIOS Name: NATASHA HU
--- OUTSIDE RECORDS SUMMARY | 2024-03-23 23:45 | XMS_ITS | Continuity of Care Document ---
Author Organization [facility] Address [address] [place] [address]- Care Team Providers Care Non Linear Editor Name Role Phone Anthony JUNIOR, Muna Cabrera Primary Care Physician Encounter [facility] Date(s): 12/18/20 - 01/17/21 [facility] [address] [place] [address]- Attending Physician: AdmFernando salvador Admitting Physician: AdmtrFernando Referring Physician: Admtr, Ar8 [...]
--- OUTSIDE RECORDS SUMMARY | 2024-03-23 23:46 | XMS_ITS | Continuity of Care Document ---
Author Organization [facility] Address [address] [place] [address]- Care Team Providers Care Business Administration Teacher Name Role Phone Anthony JUNIOR, Muna Cabrera Primary Care Physician Encounter [facility] Date(s): 01/19/21 - 01/26/21 [facility] [address] [place] [address]- Attending Physician: Gaye Tidwell MD Allergies, Adverse [...] Active Migraines(Confirmed) Active Breast pain, left(Confirmed) Active Temporal lobe epilepsy(Confirmed) Active Vital Signs Most recent to oldest [Reference Range]: 1 Height 170 cm (01/19/21 10:42 AM) Weight 61.7 kg (01/19/21 10:42 AM) Body Mass Index [18.5-24.99] 21.35 (01/19/21 10:42 AM) Blood Pressure [90-138/55-84 mm Hg] 102/ 56mm Hg (01/19/21 10:42 AM) Blood pressure sites Arm, right (01/19/21 10:42 AM) Dry Weight 61.7 kg (01/19/21 10:42 AM) Weight Obtained Via Standing scale (01/19/21 10:42 AM) Dry Weight Obtained Via Standing scale (01/19/21 10:42 AM) Social History Social History Type Response Smoking Status Never smoker entered on: 08/12/14 Sex
--- OUTSIDE RECORDS SUMMARY | 2024-03-23 23:46 | XMS_ITS | Continuity of Care Document ---
Author Organization [facility] Address [address] [place] [address]- Care Team Providers Care Dispatcher Refinery Name Role Phone Anthony JUNIOR, Muna Cabrera Primary Care Physician Encounter [facility] Date(s): 08/08/23 - 03/10/[address] [address] Attending Physician: Taj BALDERRAMA, Imani Patel Admitting Physician: Taj BALDERRAMA, Imani Patel Referring Physician: Taj BALDERRAMA, Imani Patel Allergies, Adverse Reactions, Alerts Substance Reaction Severity [...] Team Personnel Name: Cammy Garcia MD Position: [facility] FEDERAL MEDIATOR MD Member Role: Lifetime FEDERAL MEDIATOR Physician Address: Address: [address] [place] [address]'s [facility] [employer] [place] [address]- Name: Muna Cruz MD Position: [facility] Physician - Primary Care Member Role: PCP Address: Address: [address] [place] [address]- Care Team Related Persons Name: AMANDA RIOS Name: NATASHA HU
--- OUTSIDE RECORDS SUMMARY | 2024-03-23 23:46 | XMS_ITS | Continuity of Care Document ---
Author Organization [facility] Address [address] [facility] [place] [address]- Care Team Providers Care Molding Supervisor Name Role Phone Anthony JUNIOR, Muna Cabrera Primary Care Physician Encounter 12/25/19 - 02/21/20 [facility] [address], [address] [place] [address]- [phone] Attending Physician: Muna Cruz MD Admitting Physician: [...]
--- OUTSIDE RECORDS SUMMARY | 2024-03-23 23:46 | XMS_ITS | Continuity of Care Document ---
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
[2024-03-23 23:49] LABS: MANUAL DIFF FLAG NO
[2024-03-23 23:50] LABS: Basophils Percent Auto 0.6 % (0-2); Eosinophils Absolute Auto 0.1 X10*3/uL (0.0-0.4); Hemoglobin 12.7 g/dl (12.0-16.0); Imm Gran Abs Auto 0.01 X10*3/uL (0.00-0.03); Imm Gran Pct Auto 0.1 % (0.0-0.4); Lymphocytes Absolute Auto 2.8 X10*3/uL (1.2-4.9); Lymphocytes Percent Auto 39.9 % (20-40); Mean Corpuscular HGB Conc 34.3 g/dl (31.0-35.0); Mean Corpuscular Hemoglobin 28.9 pg (27.0-33.0); Mean Corpuscular Volume 84.1 fL (80.0-98.0); Mean Platelet Volume 9.3 fL (9.4-12.3); Monocytes Absolute Auto 0.7 X10*3/uL (0.1-1.2); Monocytes Percent Auto 9.6 % (2-11); Neutrophils Absolute Auto 3.5 x10*3/uL (2.0-8.3); Neutrophils Percent Auto 48.8 % (45-73); Platelet Count 320 X10*3/uL (160-400); Red Cell Distribution Width 12.3 % (11.0-16.0); White Blood Count 7.1 X10*3/uL (4.8-10.8)
[2024-03-23 23:53] LABS: Appearance Urine Turbid; Color Urine Red; Glucose Urine UA Negative (Negative); Leukocyte Esterase Urine Moderate (2+) (Negative); Nitrite Urine Negative (Negative); PH 5.5 (5.0-9.0); Specific Gravity - Urine <= 1.005 (1.005-1.025); UMIC TRIGGER UACC YES; Urine Blood Large (3+) (Negative); Urine Ketones Negative (Negative); Urine Protein 100 (2+) mg/dL (Neg-Trace)
[2024-03-23 23:54] LABS: UPreg QC Valid YES; Urine Pregnancy NEGATIVE (NEGATIVE)
[2024-03-24 00:12] LABS: Bacteria Urine 3+ (None Seen); Hyaline Casts Urine 0-2 /LPF (0-2); RBC Urine >20 /HPF (0-2); UACC Culture Trigger YES; WBC Urine 21-50 /HPF (0-5)
[2024-03-24 00:21] LABS: Alanine Aminotransferase 11 U/L (0-31); Albumin Level 4.4 g/dL (3.5-5.0); Alkaline Phosphatase 44 U/L (39-117); Anion Gap 12 (12-20); Aspartate Amino Transferase 16 U/L (5-31); Bilirubin Direct < 0.2 mg/dL (0.0-0.5); Bilirubin Total 0.2 mg/dL (0.0-1.0); Blood Urea Nitrogen 11 mg/dL (9-16); Calcium 9.5 mg/dL (8.4-10.2); Carbon Dioxide 25 mmol/L (22-29); Chloride 107 mmol/L (96-108); Creatinine Clr Calc Pharmacy 102.4; Estimated Glomerular Filt Rate > 60; Glucose Random 68 mg/dL (60-115); Potassium 3.7 mmol/L (3.3-5.1); Sodium 140 mmol/L (135-145); Total Protein 7.6 g/dL (6.5-8.0); Troponin-I High Sensitivity < 2.7 ng/L (<3.5-17.0)
[2024-03-24 02:04] VITALS: BP 98/56; PULSE 73; RESP 16; O2SAT 99
[2024-03-24 03:09] VITALS: BP 100/59; PULSE 73; RESP 20; TEMP 36.8; O2SAT 98
== END 2024-03-24 03:14 | disposition home or self-care (01) ==
PROVIDERS: Emergency Provider Emergency Medicine Emergency Medical Services; PCP Family Medicine
DX: N39.0 Urinary tract infection, site not specified (principal); R42 Dizziness and giddiness
CPT/HCPCS: 36415; 70450; 80048; 80076; 81001; 81025; 82947; 84484; 85025; 87086; 93005; 96360; 99284; 99285

== ENCOUNTER → 2024-03-23 23:32 | Outpatient (BNV) | payer OTHER, SELFPAY | PROVIDERS: Emergency Provider Emergency Medicine Emergency Medical Services; PCP Family Medicine; Visit Provider Internal Medicine | DX: R42 Dizziness and giddiness (principal); R41.82 Altered mental status, unspecified; R94.31 Abnormal electrocardiogram [ECG] [EKG] | CPT/HCPCS: 93010 ==